=== PATIENT | female | born 1950 ===

== ENCOUNTER 2017-05-29 08:07 | Day surgery (SDC) | payer MEDICARE ==
[2016-01-22 17:17] VITALS: BMI 25.7
[2017-05-29] MEDS ORDERED: Lactated Ringer's 500 ML IV ONE (08:46)
[2017-05-29] MEDS ORDERED: Propofol 10 mg/ml Inj (20 ML) ONE ×2 (09:01→10:04)
[2017-05-29] MEDS ORDERED: Lidocaine PF 2% (5 ml) Inj (For Cardiac Arrhy) IV ONE ×2 (09:01→10:05)
[2017-05-29] MEDS ORDERED: Midazolam 2 MG/2 ML VIAL ONE (09:01)
[2017-05-29 10:28] VITALS: TEMP 97.1
[2017-05-29 10:56] VITALS: BP 111/64; PULSE 67; RESP 16; O2SAT 97
== END 2017-05-29 11:01 | disposition home or self-care (01) ==
LOC: H.ENDO 08:07
PROVIDERS: ATTEND Internal Medicine Gastroenterology
DX: Z86.010 Personal history of colon polyps (principal); E78.5 Hyperlipidemia, unspecified; R06.83 Snoring; K64.8 Other hemorrhoids; K57.30 Diverticulosis of large intestine without perforation or abscess without bleeding
CPT/HCPCS: 45378; J2250; J2704; J7120